=== PATIENT | male | born 1955 | race Two or more races ===

== ENCOUNTER 2023-03-20 22:22 | Inpatient (IN) | payer BC, OTHER ==
[~2023-03-20] VITALS: Ht 177.8 cm; Wt 124.8 kg
[2023-03-20 22:59] LABS: Hemoglobin 12.1 g/dL (13.5-17.5); Mean Corpuscular Hemoglobin 34.2 pg (28.0-32.0); Mean Corpuscular Hgb Conc. 34.2 g/dL (32.0-36.0); Mean Corpuscular Volume 100.2 fL (80.0-100.0)
[2023-03-20 23:00] LABS: Hematocrit 35.5 % (41.0-53.0); Red Blood Cells 3.54 10^6/uL (4.5-5.90)
[2023-03-20 23:05] LABS: White Blood Cell 35.2 10^3/uL (4.4-10.8)
[2023-03-20 23:06] LABS: Band Neutrophils % (manual) 0; Basophils % (manual) 0 (0.0-2.0); Blast Cells 0; Eosinophils % (manual) 0 (0-7); Metamyelocytes % 0; Myelocytes % 0; Promyelocytes % 0; Reactive Lymphocytes 0
[2023-03-20 23:12] LABS: Albumin 2.3 g/dL (3.4-5.0); Calcium 8.5 mg/dL (8.5-10.1); INR 1.4 (0.9-1.15); Magnesium 2.2 mg/dL (1.6-2.6); Partial Thromboplastin Time 27.3 sec (24.6-33.4); Potassium 4.2 mmol/L (3.5-5.1)
[2023-03-20 23:17] LABS: BUN/Creatinine Ratio 16.7 (10.0-20.0); Bilirubin, Total 6.7 mg/dL (0.2-1.0); Total Protein 5.8 g/dL (6.4-8.2)
[2023-03-20 23:35] LABS: Lymphocytes % (manual) 6 (10.0-50.0); Monocytes % (manual) 5 (0-12)
[2023-03-21] MEDS ORDERED: VANCOMYCIN 1GM/250ML 250 ML IV ONE (00:15)
[2023-03-21] MEDS ORDERED: LACTATED RINGER S IV ONE (00:15)
[2023-03-21] MEDS ORDERED: PIPERACILLIN-TAZOB 3.375GM 100 ML IV ONE (00:15)
[2023-03-21 02:10] LABS: Urine Bacteria NONE SEEN /hpf (None Seen); Urine Blood Negative /uL (Negative); Urine Mucus FEW (None Seen); Urine Specific Gravity 1.013 (1.001-1.035); Urine WBC 4 /hpf (0 - 3)
[2023-03-21] MEDS ORDERED: IOHEXOL 350 MG/ML 100ML IJ ONE (02:26)
[2023-03-21] MEDS ORDERED: ONDANSETRON HCL 4 MG/2 ML VIAL IV ONE ×2 (02:45→05:00)
[2023-03-21] MEDS ORDERED: fentaNYL CITRATE 100 MCG/2 ML VL IV ONE (02:45)
[2023-03-21 03:25] LABS: Urine Bacteria NONE SEEN /hpf (None Seen); Urine Blood 1+ /uL (Negative); Urine Specific Gravity 1.009 (1.001-1.035); Urine WBC 4 /hpf (0 - 3)
[2023-03-21] MEDS ORDERED: SODIUM CHLORIDE 0.9% 1,000 ML IV ONE (06:15)
[2023-03-21] MEDS ORDERED: NITROGLYCERIN 0.4 MG SL TAB SL PRN (06:45)
[2023-03-21] MEDS ORDERED: HYDROcodone-ACET 5/325MG TAB PO PRN (06:45)
[2023-03-21] MEDS ORDERED: ALBUMIN 25% 100 ML IV ONE (06:45)
[2023-03-21] MEDS ORDERED: DIGOXIN (250MCG/ML) 2 ML AMPULE IV ONE (06:45)
[2023-03-21] MEDS ORDERED: IBUPROFEN 600 MG TAB PO PRN (06:45)
[2023-03-21] MEDS ORDERED: VANCOMYCIN PER PHARMACY 0 MG IV SCH (06:45)
[2023-03-21] MEDS ORDERED: DOCUSATE SOD 100 MG CAP PO PRN (06:45)
[2023-03-21 07:29] LABS: Mean Corpuscular Hgb Conc. 33.8 g/dL (32.0-36.0); Red Blood Cells 3.35 10^6/uL (4.5-5.90)
[2023-03-21 07:32] LABS: Hematocrit 33.6 % (41.0-53.0); Hemoglobin 11.4 g/dL (13.5-17.5); Mean Corpuscular Hemoglobin 33.9 pg (28.0-32.0); Mean Corpuscular Volume 100.3 fL (80.0-100.0); Red Cell Distribution Width 15.1 % (11.8-14.3)
[2023-03-21 07:37] LABS: White Blood Cell 31.8 10^3/uL (4.4-10.8)
[2023-03-21 07:38] LABS: Basophils % (manual) 0 (0.0-2.0); Blast Cells 0; Eosinophils % (manual) 0 (0-7); Myelocytes % 0; Promyelocytes % 0; Reactive Lymphocytes 0
[2023-03-21 07:46] LABS: Albumin 2.1 g/dL (3.4-5.0); Potassium 3.9 mmol/L (3.5-5.1)
[2023-03-21 07:49] LABS: BUN/Creatinine Ratio 21.1 (10.0-20.0); Bilirubin, Total 6.3 mg/dL (0.2-1.0); Total Protein 5.3 g/dL (6.4-8.2)
[2023-03-21] MEDS: SODIUM CHLORIDE 0.9% 1,000 ML IV SCH (08:22)
[2023-03-21] MEDS: APIXABAN 5 MG TAB PO SCH ×2 (08:25→19:30)
[2023-03-21 08:53] LABS: Band Neutrophils % (manual) 6; Lymphocytes % (manual) 5 (10.0-50.0); Metamyelocytes % 1; Monocytes % (manual) 10 (0-12)
[2023-03-21] MEDS ORDERED: APIXABAN 5 MG TAB PO SCH (10:00)
[2023-03-21] MEDS: VANCOMYCIN 1GM/250ML 250 ML IV SCH ×2 (10:23→18:20)
[2023-03-21] MEDS: PIPERACILLIN-TAZOB 3.375GM 100 ML IV SCH ×2 (11:27→19:38)
[2023-03-21] MEDS ORDERED: ATORVASTATIN 20 MG TAB PO SCH (22:00)
[2023-03-22] MEDS: SODIUM CHLORIDE 0.9% 1,000 ML IV SCH ×4 (00:01→18:22)
[2023-03-22] MEDS: VANCOMYCIN 1GM/250ML 250 ML IV SCH ×3 (01:36→18:18)
[2023-03-22] MEDS: PIPERACILLIN-TAZOB 3.375GM 100 ML IV SCH ×3 (02:56→21:58)
[2023-03-22 06:59] LABS: Hematocrit 33.1 % (41.0-53.0); Hemoglobin 11.3 g/dL (13.5-17.5); Mean Corpuscular Hemoglobin 34.1 pg (28.0-32.0); Mean Corpuscular Hgb Conc. 34.3 g/dL (32.0-36.0); Mean Corpuscular Volume 99.4 fL (80.0-100.0); Red Blood Cells 3.33 10^6/uL (4.5-5.90); Red Cell Distribution Width 15.4 % (11.8-14.3); White Blood Cell 24.1 10^3/uL (4.4-10.8)
[2023-03-22 07:06] LABS: Potassium 3.6 mmol/L (3.5-5.1)
[2023-03-22 07:11] LABS: Albumin 2.5 g/dL (3.4-5.0); BUN/Creatinine Ratio 34.3 (10.0-20.0); Calcium 8.5 mg/dL (8.5-10.1)
[2023-03-22 07:14] LABS: Bilirubin, Total 3.6 mg/dL (0.2-1.0); Total Protein 6.5 g/dL (6.4-8.2)
[2023-03-22] MEDS: APIXABAN 5 MG TAB PO SCH (07:30)
[2023-03-22 08:02] LABS: Basophils % (manual) 0 (0.0-2.0); Blast Cells 0; Eosinophils % (manual) 0 (0-7); Metamyelocytes % 0; Myelocytes % 0; Promyelocytes % 0; Reactive Lymphocytes 0
[2023-03-22] MEDS: ONDANSETRON HCL 4 MG/2 ML VIAL IV PRN ×2 (08:26→12:18)
[2023-03-22] MEDS ORDERED: METOPROLOL TARTRATE 25 MG TAB PO SCH (10:00)
[2023-03-22] MEDS: ALBUTEROL SULF 2.5 MG/0.5ML(0.5%) NEB SOLN NEB PRN (10:29)
[2023-03-22] MEDS: IPRATROPIUM BROM 0.5 MG/2.5ML INH SOL NEB PRN (10:30)
[2023-03-22] MEDS: DIGOXIN (250MCG/ML) 2 ML AMPULE IV SCH (11:40)
[2023-03-22] MEDS ORDERED: HYDROmorphone HCL 2 MG/ML VL/or syr IV PRN (12:00)
[2023-03-22 12:07] LABS: Hepatitis B Surface Antibody Negative (Negative)
[2023-03-22 12:09] LABS: Hepatitis A Total Antibody Negative (Negative)
[2023-03-22] MEDS ORDERED: METOPROLOL TARTRATE 1MG/1ML-5ML VIAL IV ONE (12:12)
[2023-03-22] MEDS ORDERED: HYDROmorphone HCL 2 MG/ML VL/or syr ONE (12:13)
[2023-03-22] MEDS: METOPROLOL TARTRATE 1MG/1ML-5ML VIAL IV PRN ×2 (12:14→18:58)
[2023-03-22 12:59] LABS: Band Neutrophils % (manual) 8; Lymphocytes % (manual) 5 (10.0-50.0); Monocytes % (manual) 2 (0-12)
[2023-03-22 14:27] LABS: Hepatitis A Ab IgM Negative
[2023-03-22 14:28] LABS: Hepatitis B Core IgM Negative; Hepatitis C Antibody Negative (Negative)
[2023-03-22 21:02] VITALS: BP 124/75
[2023-03-22] MEDS ORDERED: APIXABAN 5 MG TAB PO SCH (22:00)
[2023-03-22] MEDS: HYDROmorphone HCL 2 MG/ML VL/or syr IV PRN (23:07)
[2023-03-23] VITALS (7 sets, daily range): BP systolic 125–146; BP diastolic 69–87
[2023-03-23] MEDS: METOPROLOL TARTRATE 1MG/1ML-5ML VIAL IV PRN ×2 (00:55→12:34)
[2023-03-23] MEDS: VANCOMYCIN 1GM/250ML 250 ML IV SCH ×3 (02:11→18:29)
[2023-03-23] MEDS ORDERED: GABA300C10 PO (02:35)
[2023-03-23] MEDS ORDERED: MET50T PO (02:35)
[2023-03-23] MEDS ORDERED: DIGO0.12 PO (02:35)
[2023-03-23] MEDS ORDERED: APIX5TAB PO (02:35)
[2023-03-23] MEDS: SODIUM CHLORIDE 0.9% 1,000 ML IV SCH ×4 (04:45→22:35)
[2023-03-23] MEDS ORDERED: LOS25T PO (04:52)
[2023-03-23] MEDS ORDERED: VENL75CA78 PO (04:52)
[2023-03-23] MEDS ORDERED: ATOR40TA52 PO (04:52)
[2023-03-23] MEDS ORDERED: FLUT1AER3 PO (04:52)
[2023-03-23] MEDS ORDERED: BACL20TA PO (04:52)
[2023-03-23] MEDS: PIPERACILLIN-TAZOB 3.375GM 100 ML IV SCH ×3 (05:35→21:36)
[2023-03-23 06:01] LABS: Albumin 2.1 g/dL (3.4-5.0); BUN/Creatinine Ratio 27.1 (10.0-20.0); Calcium 8.3 mg/dL (8.5-10.1); Potassium 4.4 mmol/L (3.5-5.1)
[2023-03-23 06:03] LABS: Basophils # (auto) 0 10 ^3/uL (0-0.2); Basophils % (auto) 0.1 % (0.0-2.0); Eosinophils # (auto) 0 10 ^3/uL (0-0.8); Hematocrit 29.8 % (41.0-53.0); Hemoglobin 10.1 g/dL (13.5-17.5); Lymphocytes # (auto) 1.4 10 ^3/uL (0.4-5.4); Lymphocytes % (auto) 7.3 % (10.0-50.0); Monocytes # (auto) 2.3 10 ^3/uL (0-1.3); Neutrophils # (auto) 15.3 10 ^3/uL (1.6-8.6); Neutrophils % (auto) 80.6 % (37.0-80.0); Nucleated Red Blood Cells % 0.5 %; Red Blood Cells 2.98 10^6/uL (4.5-5.90); Red Cell Distribution Width 15.6 % (11.8-14.3)
[2023-03-23 06:04] LABS: Bilirubin, Total 1.8 mg/dL (0.2-1.0); Total Protein 5.7 g/dL (6.4-8.2)
[2023-03-23] MEDS: DIGOXIN (250MCG/ML) 2 ML AMPULE IV SCH (10:30)
[2023-03-23] MEDS: HYDROmorphone HCL 2 MG/ML VL/or syr IV PRN ×2 (10:33→18:44)
[2023-03-23] MEDS: ENOXAPARIN SOD 60 MG/0.6 ML SYRINGE SC SCH ×2 (14:08→21:36)
[2023-03-23] MEDS ORDERED: PATIENTS OWN MEDICATION (eliquis 5 MG) PO SCH (22:00)
[2023-03-23] MEDS ORDERED: APIXABAN 5 MG TAB PO SCH (22:00)
[2023-03-24] VITALS (8 sets, daily range): BP systolic 124–147; BP diastolic 69–91
[2023-03-24] MEDS: HYDROmorphone HCL 2 MG/ML VL/or syr IV PRN ×4 (02:06→22:52)
[2023-03-24] MEDS: VANCOMYCIN 1GM/250ML 250 ML IV SCH ×3 (02:10→18:32)
[2023-03-24] MEDS: PIPERACILLIN-TAZOB 3.375GM 100 ML IV SCH ×3 (05:56→21:47)
[2023-03-24 06:15] LABS: Basophils # (auto) 0 10 ^3/uL (0-0.2); Basophils % (auto) 0.2 % (0.0-2.0); Eosinophils # (auto) 0 10 ^3/uL (0-0.8); Hematocrit 31.6 % (41.0-53.0); Hemoglobin 10.4 g/dL (13.5-17.5); Lymphocytes # (auto) 1.2 10 ^3/uL (0.4-5.4); Lymphocytes % (auto) 6.3 % (10.0-50.0); Mean Corpuscular Hemoglobin 32.3 pg (28.0-32.0); Mean Corpuscular Hgb Conc. 32.9 g/dL (32.0-36.0); Mean Corpuscular Volume 98.2 fL (80.0-100.0); Monocytes # (auto) 2.7 10 ^3/uL (0-1.3); Monocytes % (auto) 13.9 % (0.0-12.0); Neutrophils # (auto) 15.5 10 ^3/uL (1.6-8.6); Neutrophils % (auto) 79.6 % (37.0-80.0); Nucleated Red Blood Cells % 0.2 %; Red Blood Cells 3.21 10^6/uL (4.5-5.90); Red Cell Distribution Width 15.1 % (11.8-14.3); White Blood Cell 19.5 10^3/uL (4.4-10.8)
[2023-03-24 06:36] LABS: BUN/Creatinine Ratio 25.5 (10.0-20.0); Calcium 8.2 mg/dL (8.5-10.1); Potassium 3.3 mmol/L (3.5-5.1)
[2023-03-24 06:39] LABS: Bilirubin, Total 1.9 mg/dL (0.2-1.0)
[2023-03-24] MEDS ORDERED: PHYTONADIONE (VIT K)10 MG/ML 1ML VIAL SUBCUT ONE (08:00)
[2023-03-24] MEDS: ENOXAPARIN SOD 60 MG/0.6 ML SYRINGE SC SCH ×2 (10:00→21:47)
[2023-03-24] MEDS: DIGOXIN (250MCG/ML) 2 ML AMPULE IV SCH (10:00)
[2023-03-24 12:14] LABS: INR 1.27 (0.9-1.15); Partial Thromboplastin Time 30.1 sec (24.6-33.4)
[2023-03-24] MEDS: SODIUM CHLORIDE 0.9% 1,000 ML IV SCH ×2 (12:45→20:45)
[2023-03-24] MEDS ORDERED: LIDOCAINE 2%HCL (LOCAL ANESTH.) INJ 20ML MDV ONE (15:46)
[2023-03-24] MEDS ORDERED: fentaNYL CITRATE 100 MCG/2 ML VL ONE (15:50)
[2023-03-24] MEDS ORDERED: dilTIAZem 25 MG/5 ML VIAL IV ONE (16:30)
[2023-03-24] MEDS ORDERED: DIGOXIN (250MCG/ML) 2 ML AMPULE IV ONE (16:30)
[2023-03-24] MEDS ORDERED: MAGNESIUM SULFATE 1GM/100ML 100 ML IV ONE (16:30)
[2023-03-24] MEDS ORDERED: POTASSIUM CHLORIDE 60 MEQ, LIDOCAINE 1% (LOCAL ANESTH.) 6 ML in SODIUM CHL 0.9% 500 ML IV ONE (16:30)
[2023-03-24] MEDS: METOPROLOL TARTRATE 1MG/1ML-5ML VIAL IV PRN (17:07)
[2023-03-24] MEDS: AMIODARONE HCL 150 MG in D5W 5% 100 ML IV ONE ×2 (18:15→18:34)
[2023-03-24] MEDS: AMIODARONE HCL 200 MG TAB PO SCH (21:48)
[2023-03-25] MEDS: VANCOMYCIN 1GM/250ML 250 ML IV SCH ×3 (02:36→18:00)
[2023-03-25] MEDS: SODIUM CHLORIDE 0.9% 1,000 ML IV SCH ×3 (04:45→20:45)
[2023-03-25 05:00] VITALS: BP 121/77
[2023-03-25] MEDS: PIPERACILLIN-TAZOB 3.375GM 100 ML IV SCH ×3 (06:20→23:09)
[2023-03-25] MEDS: HYDROmorphone HCL 2 MG/ML VL/or syr IV PRN ×2 (06:21→20:57)
[2023-03-25 06:38] LABS: Basophils # (auto) 0 10 ^3/uL (0-0.2); Basophils % (auto) 0.2 % (0.0-2.0); Eosinophils # (auto) 0 10 ^3/uL (0-0.8); Nucleated Red Blood Cells % 0.1 %
[2023-03-25 06:40] LABS: Eosinophils % (auto) 0.1 % (0.0-7.0); Hematocrit 31.5 % (41.0-53.0); Hemoglobin 10.7 g/dL (13.5-17.5); Lymphocytes # (auto) 1.6 10 ^3/uL (0.4-5.4); Lymphocytes % (auto) 9.2 % (10.0-50.0); Mean Corpuscular Hemoglobin 33.8 pg (28.0-32.0); Mean Corpuscular Hgb Conc. 34.1 g/dL (32.0-36.0); Monocytes # (auto) 2.7 10 ^3/uL (0-1.3); Monocytes % (auto) 15.8 % (0.0-12.0); Neutrophils # (auto) 12.9 10 ^3/uL (1.6-8.6); Neutrophils % (auto) 74.7 % (37.0-80.0); Red Blood Cells 3.18 10^6/uL (4.5-5.90); Red Cell Distribution Width 15.2 % (11.8-14.3); White Blood Cell 17.2 10^3/uL (4.4-10.8)
[2023-03-25 06:50] LABS: Albumin 2.2 g/dL (3.4-5.0); Calcium 8.3 mg/dL (8.5-10.1); Magnesium 2.6 mg/dL (1.6-2.6); Potassium 3.3 mmol/L (3.5-5.1)
[2023-03-25 06:53] LABS: BUN/Creatinine Ratio 20.5 (10.0-20.0); Total Protein 6.5 g/dL (6.4-8.2)
[2023-03-25 08:52] VITALS: BP 130/74
[2023-03-25] MEDS ORDERED: POTASSIUM CHLORIDE 60 MEQ, LIDOCAINE 1% (LOCAL ANESTH.) 6 ML in SODIUM CHL 0.9% 500 ML IV ONE (09:00)
[2023-03-25] MEDS: ENOXAPARIN SOD 60 MG/0.6 ML SYRINGE SC SCH ×2 (10:00→23:10)
[2023-03-25] MEDS: AMIODARONE HCL 200 MG TAB PO SCH ×2 (10:00→23:15)
[2023-03-25 13:02] VITALS: BP 144/68
[2023-03-25] MEDS: ONDANSETRON HCL 4 MG/2 ML VIAL IV PRN (15:35)
[2023-03-25] MEDS ORDERED: LORazepam 2MG/ML-1ML VIAL IV ONE (16:00)
[2023-03-25 16:22] VITALS: BP 157/87
[2023-03-25] MEDS: METOPROLOL TARTRATE 1MG/1ML-5ML VIAL IV PRN (21:19)
[2023-03-25 22:00] VITALS: BP_SYST 135; BP_SYST 145; BP_DIAS 65; BP_DIAS 70
[2023-03-26 01:43] VITALS: BP 127/77
[2023-03-26] MEDS: VANCOMYCIN 1GM/250ML 250 ML IV SCH ×2 (02:04→10:28)
[2023-03-26] MEDS: HYDROmorphone HCL 2 MG/ML VL/or syr IV PRN ×3 (04:30→18:50)
[2023-03-26 05:00] VITALS: BP 146/77
[2023-03-26] MEDS: PIPERACILLIN-TAZOB 3.375GM 100 ML IV SCH ×3 (05:54→21:43)
[2023-03-26] MEDS: SODIUM CHLORIDE 0.9% 1,000 ML IV SCH ×3 (05:56→20:45)
[2023-03-26 06:14] LABS: Basophils # (auto) 0 10 ^3/uL (0-0.2); Basophils % (auto) 0.1 % (0.0-2.0); Eosinophils # (auto) 0 10 ^3/uL (0-0.8); Hemoglobin 9.9 g/dL (13.5-17.5); Lymphocytes # (auto) 1.3 10 ^3/uL (0.4-5.4); Lymphocytes % (auto) 6.4 % (10.0-50.0); Mean Corpuscular Hemoglobin 33.7 pg (28.0-32.0); Mean Corpuscular Hgb Conc. 34.1 g/dL (32.0-36.0); Mean Corpuscular Volume 98.7 fL (80.0-100.0); Monocytes # (auto) 3.4 10 ^3/uL (0-1.3); Monocytes % (auto) 17.2 % (0.0-12.0); Neutrophils # (auto) 14.9 10 ^3/uL (1.6-8.6); Neutrophils % (auto) 76.3 % (37.0-80.0); Nucleated Red Blood Cells % 0.4 %; Red Blood Cells 2.94 10^6/uL (4.5-5.90); Red Cell Distribution Width 15.2 % (11.8-14.3); White Blood Cell 19.6 10^3/uL (4.4-10.8)
[2023-03-26 06:37] LABS: Potassium 3.4 mmol/L (3.5-5.1)
[2023-03-26 06:45] LABS: Albumin 2.1 g/dL (3.4-5.0); BUN/Creatinine Ratio 18.9 (10.0-20.0); Bilirubin, Total 1.8 mg/dL (0.2-1.0); Calcium 7.8 mg/dL (8.5-10.1); Total Protein 5.5 g/dL (6.4-8.2)
[2023-03-26 09:00] VITALS: BP 143/83
[2023-03-26] MEDS: AMIODARONE HCL 200 MG TAB PO SCH ×2 (10:00→21:43)
[2023-03-26] MEDS: ENOXAPARIN SOD 60 MG/0.6 ML SYRINGE SC SCH ×2 (10:00→21:44)
[2023-03-26] MEDS: DIGOXIN (250MCG/ML) 2 ML AMPULE IV SCH (10:00)
[2023-03-26 13:00] VITALS: BP 147/80
[2023-03-26] MEDS: METOPROLOL TARTRATE 1MG/1ML-5ML VIAL IV PRN ×2 (16:13→23:57)
[2023-03-26 16:48] VITALS: BP 153/79
[2023-03-26 22:00] VITALS: BP 135/70
[2023-03-26] MEDS ORDERED: LORazepam 2MG/ML-1ML VIAL IV PRN (22:45)
[2023-03-26 23:31] LABS: Cholesterol 105 mg/dL (< 200)
[2023-03-26 23:34] LABS: HDL Cholesterol 19 mg/dL (40-59); LDL Cholesterol 80 mg/dL (< 100); Triglycerides 86 mg/dL (< 150)
[2023-03-26 23:39] LABS: Folate (Folic Acid) 6.59 ng/mL (5.38-24)
[2023-03-27] MEDS: HALOPERIDOL LACTATE 5 MG/ML INJ VIAL IM PRN (01:10)
[2023-03-27] MEDS: SODIUM CHLORIDE 0.9% 1,000 ML IV SCH ×3 (01:24→20:45)
[2023-03-27] MEDS: HYDROmorphone HCL 2 MG/ML VL/or syr IV PRN (03:31)
[2023-03-27 05:00] VITALS: BP 139/72
[2023-03-27] MEDS: METOPROLOL TARTRATE 1MG/1ML-5ML VIAL IV PRN ×2 (05:49→21:18)
[2023-03-27] MEDS: PIPERACILLIN-TAZOB 3.375GM 100 ML IV SCH ×3 (06:07→21:22)
[2023-03-27 06:18] LABS: Hemoglobin 9.6 g/dL (13.5-17.5)
[2023-03-27 06:20] LABS: Hematocrit 28.6 % (41.0-53.0); Mean Corpuscular Hemoglobin 33.6 pg (28.0-32.0); Mean Corpuscular Hgb Conc. 33.7 g/dL (32.0-36.0); Mean Corpuscular Volume 99.6 fL (80.0-100.0); Red Blood Cells 2.87 10^6/uL (4.5-5.90); Red Cell Distribution Width 15.2 % (11.8-14.3); White Blood Cell 18.2 10^3/uL (4.4-10.8)
[2023-03-27 06:53] LABS: Basophils % (manual) 0 (0.0-2.0); Blast Cells 0; Eosinophils % (manual) 0 (0-7); Metamyelocytes % 0; Myelocytes % 0; Promyelocytes % 0; Reactive Lymphocytes 0
[2023-03-27 06:54] LABS: Potassium 3.1 mmol/L (3.5-5.1)
[2023-03-27 07:00] LABS: BUN/Creatinine Ratio 17.8 (10.0-20.0); Calcium 8.1 mg/dL (8.5-10.1)
[2023-03-27 07:03] LABS: Bilirubin, Total 1.8 mg/dL (0.2-1.0); Total Protein 6.5 g/dL (6.4-8.2)
[2023-03-27 07:06] LABS: Albumin 0.7 g/dL (3.4-5.0)
[2023-03-27 07:41] LABS: Band Neutrophils % (manual) 9; Lymphocytes % (manual) 2 (10.0-50.0); Monocytes % (manual) 12 (0-12)
[2023-03-27 09:02] LABS: Albumin 2.1 g/dL (3.4-5.0); Calcium 8.1 mg/dL (8.5-10.1); Potassium 3.3 mmol/L (3.5-5.1)
[2023-03-27 09:06] LABS: BUN/Creatinine Ratio 17.2 (10.0-20.0); Bilirubin, Total 1.8 mg/dL (0.2-1.0); Total Protein 6.4 g/dL (6.4-8.2)
[2023-03-27] MEDS: AMIODARONE HCL 200 MG TAB PO SCH ×2 (10:00→21:24)
[2023-03-27] MEDS: DIGOXIN (250MCG/ML) 2 ML AMPULE IV SCH (10:00)
[2023-03-27] MEDS: ENOXAPARIN SOD 60 MG/0.6 ML SYRINGE SC SCH ×2 (10:00→21:25)
[2023-03-27] MEDS: POTASSIUM CHL 20MEQ/100ML 100 ML IV SCH (12:00)
[2023-03-27] MEDS: IPRATROPIUM BROM 0.5 MG/2.5ML INH SOL NEB PRN (20:58)
[2023-03-27] MEDS: ALBUTEROL SULF 2.5 MG/0.5ML(0.5%) NEB SOLN NEB PRN (20:58)
[2023-03-27] MEDS: ONDANSETRON HCL 4 MG/2 ML VIAL IV PRN (21:19)
[2023-03-27] MEDS: OLANZapine 5 MG TAB PO SCH (21:24)
[2023-03-27 22:00] VITALS: BP 132/62
[2023-03-28] VITALS (47 sets, daily range): BP systolic 62–180; BP diastolic 35–103
[2023-03-28] MEDS: HALOPERIDOL LACTATE 5 MG/ML INJ VIAL IM PRN (02:16)
[2023-03-28] MEDS: SODIUM CHLORIDE 0.9% 1,000 ML IV SCH ×2 (04:55→12:45)
[2023-03-28 05:12] LABS: Calcium 8.2 mg/dL (8.5-10.1)
[2023-03-28 05:16] LABS: BUN/Creatinine Ratio 16.9 (10.0-20.0); Potassium 2.9 mmol/L (3.5-5.1)
[2023-03-28] MEDS: PIPERACILLIN-TAZOB 3.375GM 100 ML IV SCH ×3 (05:22→22:00)
[2023-03-28] MEDS ORDERED: POTASSIUM CHL 20 Meq TABLET PO ONE (05:30)
[2023-03-28] MEDS ORDERED: POTASSIUM CHL 20MEQ/100ML 100 ML IV ONE ×2 (05:30→10:00)
[2023-03-28] MEDS ORDERED: FUROSEMIDE 40 MG/4 ML VIAL IV ONE (08:30)
[2023-03-28] MEDS: METOPROLOL TARTRATE 1MG/1ML-5ML VIAL IV PRN (08:45)
[2023-03-28] MEDS: IPRATROPIUM BROM 0.5 MG/2.5ML INH SOL NEB PRN (09:06)
[2023-03-28] MEDS: ALBUTEROL SULF 2.5 MG/0.5ML(0.5%) NEB SOLN NEB PRN (09:06)
[2023-03-28 09:37] LABS: Hemoglobin 9.9 g/dL (13.5-17.5); White Blood Cell 13.8 10^3/uL (4.4-10.8)
[2023-03-28 09:38] LABS: Hematocrit 30.3 % (41.0-53.0); Mean Corpuscular Hemoglobin 32.8 pg (28.0-32.0); Mean Corpuscular Hgb Conc. 32.6 g/dL (32.0-36.0); Mean Corpuscular Volume 100.6 fL (80.0-100.0); Red Blood Cells 3.01 10^6/uL (4.5-5.90); Red Cell Distribution Width 15.7 % (11.8-14.3)
[2023-03-28 09:55] LABS: Basophils % (manual) 0 (0.0-2.0); Blast Cells 0; Eosinophils % (manual) 0 (0-7); Metamyelocytes % 0; Myelocytes % 0; Promyelocytes % 0; Reactive Lymphocytes 0
[2023-03-28] MEDS ORDERED: PATIENTS OWN MEDICATION (ELIQUIS 5 MG) PO SCH (10:00)
[2023-03-28] MEDS ORDERED: VANCOMYCIN 1GM/250ML 250 ML IV ONE (10:00)
[2023-03-28] MEDS: DIGOXIN (250MCG/ML) 2 ML AMPULE IV SCH (10:41)
[2023-03-28] MEDS ORDERED: ETOMIDATE (2MG/ML) 20ML VIAL IV ONE (11:15)
[2023-03-28] MEDS: PROPOFOL 100 ML IV SCH ×3 (11:15→18:51)
[2023-03-28] MEDS ORDERED: ROCURONIUM 10MG/ML 10ML VIAL IV ONE (11:15)
[2023-03-28] MEDS: AMIODARONE HCL 200 MG TAB PO SCH ×2 (11:19→22:00)
[2023-03-28] MEDS: OLANZapine 5 MG TAB PO SCH ×2 (11:20→22:00)
[2023-03-28] MEDS: APIXABAN 5 MG TAB PO SCH ×2 (11:20→22:00)
[2023-03-28 12:41] LABS: Band Neutrophils % (manual) 1; Lymphocytes % (manual) 8 (10.0-50.0); Monocytes % (manual) 9 (0-12)
[2023-03-28] MEDS: MIDAZOLAM DRIP 50 mg/50mL 50 ML IV SCH (13:00)
[2023-03-28] MEDS: fentaNYL Drip 2500mCg/250mlNS 250 ML IV SCH (13:00)
[2023-03-28] MEDS: NOREPINEPHRINE 8 MG/250ML KIT 250 ML IV SCH (13:55)
[2023-03-29] VITALS (86 sets, daily range): BP systolic 74–147; BP diastolic 31–76
[2023-03-29] MEDS: PIPERACILLIN-TAZOB 3.375GM 100 ML IV SCH (06:37)
[2023-03-29 07:08] LABS: Basophils # (auto) 0 10 ^3/uL (0-0.2); Basophils % (auto) 0.2 % (0.0-2.0); Eosinophils # (auto) 0.3 10 ^3/uL (0-0.8); Eosinophils % (auto) 1.5 % (0.0-7.0); Hematocrit 29.7 % (41.0-53.0); Hemoglobin 9.9 g/dL (13.5-17.5); Lymphocytes # (auto) 2.4 10 ^3/uL (0.4-5.4); Lymphocytes % (auto) 12.7 % (10.0-50.0); Mean Corpuscular Hemoglobin 33.3 pg (28.0-32.0); Mean Corpuscular Hgb Conc. 33.3 g/dL (32.0-36.0); Mean Corpuscular Volume 100.1 fL (80.0-100.0); Monocytes # (auto) 2.5 10 ^3/uL (0-1.3); Monocytes % (auto) 13.4 % (0.0-12.0); Neutrophils # (auto) 13.7 10 ^3/uL (1.6-8.6); Neutrophils % (auto) 72.2 % (37.0-80.0); Nucleated Red Blood Cells % 1.6 %; Red Blood Cells 2.97 10^6/uL (4.5-5.90); Red Cell Distribution Width 15.6 % (11.8-14.3)
[2023-03-29 07:49] LABS: Albumin 1.9 g/dL (3.4-5.0); Calcium 7.9 mg/dL (8.5-10.1); Potassium 3.4 mmol/L (3.5-5.1)
[2023-03-29 07:53] LABS: BUN/Creatinine Ratio 14.6 (10.0-20.0); Bilirubin, Total 1.4 mg/dL (0.2-1.0); Total Protein 6.2 g/dL (6.4-8.2)
[2023-03-29] MEDS: MIDAZOLAM DRIP 50 mg/50mL 50 ML IV SCH ×3 (08:30→21:43)
[2023-03-29] MEDS: AMIODARONE HCL 200 MG TAB PO SCH ×3 (10:00→23:09)
[2023-03-29] MEDS: DIGOXIN (250MCG/ML) 2 ML AMPULE IV SCH (10:00)
[2023-03-29] MEDS ORDERED: MEROPENEM 1GM IVPB 100 ML IV ONE (10:30)
[2023-03-29] MEDS ORDERED: ENOXAPARIN SOD 40 MG/0.4 ML SYRINGE SC ONE (11:15)
[2023-03-29] MEDS: NOREPINEPHRINE 8 MG/250ML KIT 250 ML IV SCH ×2 (11:15→23:55)
[2023-03-29] MEDS: OLANZapine 5 MG TAB PO SCH ×2 (11:36→21:41)
[2023-03-29] MEDS: ACETAMINOPHEN 650 mg PER 20.3 mL UD GT PRN ×2 (11:36→21:43)
[2023-03-29] MEDS: POTASSIUM CHL 20MEQ/100ML 100 ML IV SCH ×2 (13:24→15:15)
[2023-03-29] MEDS: fentaNYL Drip 2500mCg/250mlNS 250 ML IV SCH (13:34)
[2023-03-29] MEDS: MEROPENEM 1GM IVPB 100 ML IV SCH ×2 (14:59→21:42)
[2023-03-29] MEDS: FREE WATER GT SCH ×3 (14:59→21:42)
[2023-03-30] VITALS (106 sets, daily range): BP systolic 79–159; BP diastolic 35–88
[2023-03-30] MEDS: MIDAZOLAM DRIP 50 mg/50mL 50 ML IV SCH ×4 (02:01→19:10)
[2023-03-30] MEDS: FREE WATER GT SCH ×6 (02:05→22:29)
[2023-03-30] MEDS: METOPROLOL TARTRATE 1MG/1ML-5ML VIAL IV PRN ×3 (02:15→20:38)
[2023-03-30 06:07] LABS: Hematocrit 29.7 % (41.0-53.0); Hemoglobin 9.8 g/dL (13.5-17.5); Mean Corpuscular Hemoglobin 32.8 pg (28.0-32.0); Mean Corpuscular Hgb Conc. 32.9 g/dL (32.0-36.0); Mean Corpuscular Volume 99.6 fL (80.0-100.0); Red Blood Cells 2.98 10^6/uL (4.5-5.90); Red Cell Distribution Width 15.8 % (11.8-14.3); White Blood Cell 13.9 10^3/uL (4.4-10.8)
[2023-03-30 06:12] LABS: Basophils % (manual) 0 (0.0-2.0); Blast Cells 0; Myelocytes % 0; Promyelocytes % 0; Reactive Lymphocytes 0
[2023-03-30] MEDS: MEROPENEM 1GM IVPB 100 ML IV SCH ×3 (06:21→22:29)
[2023-03-30] MEDS: PROPOFOL 100 ML IV SCH ×2 (06:26→23:30)
[2023-03-30 06:33] LABS: Albumin 1.8 g/dL (3.4-5.0); Calcium 7.8 mg/dL (8.5-10.1); Potassium 3.5 mmol/L (3.5-5.1)
[2023-03-30 06:38] LABS: BUN/Creatinine Ratio 15.3 (10.0-20.0); Total Protein 5.7 g/dL (6.4-8.2)
[2023-03-30 09:39] LABS: Band Neutrophils % (manual) 4; Eosinophils % (manual) 2 (0-7); Lymphocytes % (manual) 14 (10.0-50.0); Metamyelocytes % 2; Monocytes % (manual) 6 (0-12)
[2023-03-30] MEDS ORDERED: DexAMETHasone SOD PHOS 10MG/1ML VIAL INJ IV ONE (10:00)
[2023-03-30] MEDS: AMIODARONE HCL 200 MG TAB PO SCH ×2 (10:46→22:29)
[2023-03-30] MEDS: DIGOXIN (250MCG/ML) 2 ML AMPULE IV SCH (10:46)
[2023-03-30] MEDS: ENOXAPARIN SOD 40 MG/0.4 ML SYRINGE SC SCH ×2 (10:46→22:29)
[2023-03-30] MEDS: OLANZapine 5 MG TAB PO SCH ×2 (10:47→22:29)
[2023-03-30] MEDS: VANCOMYCIN 1GM/250ML 250 ML IV SCH (12:29)
[2023-03-30] MEDS: fentaNYL Drip 2500mCg/250mlNS 250 ML IV SCH (12:45)
[2023-03-30] MEDS: IPRATROPIUM BROM 0.5 MG/2.5ML INH SOL NEB PRN ×2 (19:09→22:11)
[2023-03-30] MEDS: ALBUTEROL SULF 2.5 MG/0.5ML(0.5%) NEB SOLN NEB PRN ×2 (19:09→22:11)
[2023-03-31] VITALS (74 sets, daily range): BP systolic 81–157; BP diastolic 32–93
[2023-03-31] MEDS: MIDAZOLAM DRIP 50 mg/50mL 50 ML IV SCH ×2 (00:30→12:56)
[2023-03-31] MEDS: FREE WATER GT SCH ×4 (01:55→14:30)
[2023-03-31] MEDS: IPRATROPIUM BROM 0.5 MG/2.5ML INH SOL NEB PRN ×4 (02:25→14:20)
[2023-03-31] MEDS: ALBUTEROL SULF 2.5 MG/0.5ML(0.5%) NEB SOLN NEB PRN ×4 (02:25→14:20)
[2023-03-31] MEDS: METOPROLOL TARTRATE 1MG/1ML-5ML VIAL IV PRN (03:33)
[2023-03-31 05:57] LABS: Albumin 1.5 g/dL (3.4-5.0); Calcium 7.5 mg/dL (8.5-10.1); Potassium 3.8 mmol/L (3.5-5.1)
[2023-03-31 06:01] LABS: BUN/Creatinine Ratio 16.4 (10.0-20.0); Bilirubin, Total 0.8 mg/dL (0.2-1.0); Total Protein 5.7 g/dL (6.4-8.2)
[2023-03-31] MEDS: MEROPENEM 1GM IVPB 100 ML IV SCH ×2 (06:20→14:29)
[2023-03-31 06:22] LABS: Hematocrit 31.4 % (41.0-53.0); Hemoglobin 10.4 g/dL (13.5-17.5); Mean Corpuscular Hemoglobin 33.1 pg (28.0-32.0); Mean Corpuscular Hgb Conc. 33.3 g/dL (32.0-36.0); Mean Corpuscular Volume 99.5 fL (80.0-100.0); Red Blood Cells 3.15 10^6/uL (4.5-5.90); Red Cell Distribution Width 15.7 % (11.8-14.3); White Blood Cell 12.5 10^3/uL (4.4-10.8)
[2023-03-31 06:26] LABS: Basophils % (manual) 0 (0.0-2.0); Blast Cells 0; Eosinophils % (manual) 0 (0-7); Metamyelocytes % 0; Myelocytes % 0; Promyelocytes % 0; Reactive Lymphocytes 0
[2023-03-31] MEDS: NOREPINEPHRINE 8 MG/250ML KIT 250 ML IV SCH (07:43)
[2023-03-31 08:26] LABS: Band Neutrophils % (manual) 1; Lymphocytes % (manual) 4 (10.0-50.0); Monocytes % (manual) 3 (0-12)
[2023-03-31] MEDS ORDERED: DexAMETHasone SOD PHOS 10MG/1ML VIAL INJ IV SCH (10:00)
[2023-03-31] MEDS: ENOXAPARIN SOD 40 MG/0.4 ML SYRINGE SC SCH (10:43)
[2023-03-31] MEDS: AMIODARONE HCL 200 MG TAB PO SCH (10:44)
[2023-03-31] MEDS: OLANZapine 5 MG TAB PO SCH (10:44)
[2023-03-31] MEDS: fentaNYL Drip 2500mCg/250mlNS 250 ML IV SCH (11:15)
[2023-03-31] MEDS: DIGOXIN (250MCG/ML) 2 ML AMPULE IV SCH (11:19)
[2023-03-31] MEDS: VANCOMYCIN 1GM/250ML 250 ML IV SCH (12:54)
[2023-03-31] MEDS: PROPOFOL 100 ML IV SCH (12:56)
== END 2023-03-31 16:48 | disposition short-term general hospital (02) | DRG 871 ==
LOC: ER 22:22 → EDBD 22:22 → TELE 03-21 06:49 → TELE-WESTW 03-22 20:20 → ICU CENTRL 03-28 11:40
PROVIDERS: ADMIT Nurse Practitioner Family; ATTEND Internal Medicine Pulmonary Disease
PROC: 5A09357 Assistance with Respiratory Ventilation, Less than 24 Consecutive Hours, Continuous Positive Airway Pressure (ICD-10-PCS; 2023-03-22)
PROC: 0F9430Z Drainage of Gallbladder with Drainage Device, Percutaneous Approach (ICD-10-PCS; 2023-03-24)
PROC: 5A09357 Assistance with Respiratory Ventilation, Less than 24 Consecutive Hours, Continuous Positive Airway Pressure (ICD-10-PCS; 2023-03-25)
PROC: 5A09357 Assistance with Respiratory Ventilation, Less than 24 Consecutive Hours, Continuous Positive Airway Pressure (ICD-10-PCS; 2023-03-26)
PROC: 5A09357 Assistance with Respiratory Ventilation, Less than 24 Consecutive Hours, Continuous Positive Airway Pressure (ICD-10-PCS; 2023-03-27)
PROC: 5A09357 Assistance with Respiratory Ventilation, Less than 24 Consecutive Hours, Continuous Positive Airway Pressure (ICD-10-PCS; 2023-03-28)
PROC: 02HV33Z Insertion of Infusion Device into Superior Vena Cava, Percutaneous Approach (ICD-10-PCS; 2023-03-28)
PROC: B548ZZA Ultrasonography of Superior Vena Cava, Guidance (ICD-10-PCS; 2023-03-28)
PROC: 5A1945Z Respiratory Ventilation, 24-96 Consecutive Hours (ICD-10-PCS; principal; 2023-03-29)
PROC: 0BH17EZ Insertion of Endotracheal Airway into Trachea, Via Natural or Artificial Opening (ICD-10-PCS; 2023-03-29)
DX: A41.9 Sepsis, unspecified organism (principal); E43 Unspecified severe protein-calorie malnutrition; U07.1 COVID-19; R65.21 Severe sepsis with septic shock; G93.41 Metabolic encephalopathy; J96.01 Acute respiratory failure with hypoxia; J12.82 Pneumonia due to coronavirus disease 2019; J44.0 Chronic obstructive pulmonary disease with (acute) lower respiratory infection; K80.00 Calculus of gallbladder with acute cholecystitis without obstruction; I82.403 Acute embolism and thrombosis of unspecified deep veins of lower extremity, bilateral; E87.0 Hyperosmolality and hypernatremia; I42.9 Cardiomyopathy, unspecified; E87.6 Hypokalemia; G47.30 Sleep apnea, unspecified; E66.9 Obesity, unspecified; E86.0 Dehydration; G89.29 Other chronic pain; E88.09 Other disorders of plasma-protein metabolism, not elsewhere classified; I11.0 Hypertensive heart disease with heart failure; I48.91 Unspecified atrial fibrillation; I50.9 Heart failure, unspecified; K59.00 Constipation, unspecified; K82.8 Other specified diseases of gallbladder; R32 Unspecified urinary incontinence; Z79.01 Long term (current) use of anticoagulants; Z86.73 Personal history of transient ischemic attack (TIA), and cerebral infarction without residual deficits; Z90.81 Acquired absence of spleen; Z68.39 Body mass index [BMI] 39.0-39.9, adult; Z88.5 Allergy status to narcotic agent; Z79.899 Other long term (current) drug therapy; Z87.442 Personal history of urinary calculi; Z86.718 Personal history of other venous thrombosis and embolism; Z85.118 Personal history of other malignant neoplasm of bronchus and lung; Z86.711 Personal history of pulmonary embolism; Z82.49 Family history of ischemic heart disease and other diseases of the circulatory system
CPT/HCPCS: 36415; 36600; 47532; 51702; 70450; 71045; 71275; 72148; 74176; 74181; 76705; 76942; 80048; 80053; 80061; 80074; 80162; 80202; 81001; 82607; 82746; 82805; 82962; 83605; 83735; 83880; 84443; 84484; 85007; 85025; 85027; 85610; 85730; 86704; 86706; 86708; 86803; 86850; 86900; 86901; 87040; 87070; 87081; 87086; 87205; 87340; 93005; 93306; 94002; 94003; 94640; 94660; 95819; 96361; 96365; 96367; 96375; 96376; 97163; 99152; A4565; G0378; J1100; J2001; J2185; J2250; J2405; J2543; J2704; J3480; J7060; P9047